=== PATIENT | male | born 2000 | race Caucasian/White ===

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

== ENCOUNTER 2023-12-18 12:12 | Emergency (ER) | payer OTHER ==
[~2023-12-18] VITALS: Ht 165.1 cm; Wt 53.6 kg
[2023-12-18] MEDS: diphenhydrAMINE 50MG/ML VIAL IV STA (12:44)
[2023-12-18] MEDS ORDERED: MIRT1TAB (12:49)
[2023-12-18] MEDS: BOOSTRIX VACCINE (TETANUS/DIPHTH/ACEL. PERTUSSIS) 0.5ML SYR IM.IMMUN ONE (13:15)
[2023-12-18 13:33] VITALS: BP 129/84; TEMP 98.4; O2SAT 100
== END 2023-12-18 13:39 | disposition home or self-care (01) ==
LOC: M ED 12:12
DX: G24.02 Drug induced acute dystonia (principal); F32.A Depression, unspecified; Z79.899 Other long term (current) drug therapy; Z23 Encounter for immunization
CPT/HCPCS: 90471; 90715; 96374; 99283; J1200

== ENCOUNTER 2023-12-27 08:20 | Emergency (ER) | payer OTHER ==
[~2023-12-27 08:20] MED LIST: MIRT1TAB
== END 2023-12-27 11:04 | disposition left against medical advice (07) ==
LOC: M ED 08:20
DX: Z53.21 Procedure and treatment not carried out due to patient leaving prior to being seen by health care provider (principal)

== ENCOUNTER 2023-12-29 08:59 | Emergency (ER) | payer OTHER ==
[~2023-12-29] VITALS: Ht 165.1 cm; Wt 52.9 kg
[2023-12-29 11:00] LABS: BASO # 0.1 10^3/uL (0.0-0.2); BASO % 0.5 % (0.0-1.0); EOS % 0.1 % (0.0-3.0); HEMATOCRIT 44.8 % (42.0-52.0); HEMOGLOBIN 15.7 g/dl (13.5-17.5); LYMPH # 0.8 10^3/uL (1.5-5.0); LYMPH % 6.5 % (24.0-44.0); MEAN CORPUSCULAR HEMOGLOBIN 30.7 pg (27.0-33.0); MEAN CORPUSCULAR VOLUME 87.5 fl (80.0-96.0); MONO # 0.5 10^3/uL (0.0-0.8); MONO % 3.8 % (2.0-8.0); NEUTROPHILS # 10.6 10^3/uL (1.5-8.5); NEUTROPHILS % 88.8 % (36.0-66.0); PLATELET COUNT, AUTOMATED 168 10^3/uL (150-450); RED BLOOD COUNT 5.12 10^6/uL (4.30-6.10)
[2023-12-29 11:20] VITALS: BP 110/64; TEMP 98.3; O2SAT 100
[2023-12-29 11:33] LABS: ALBUMIN 4.7 G/DL (3.2-5.2); ALKALINE PHOSPHATASE 65 U/L (46-116); ALT/SGPT 19 U/L (7.0-40); AST/SGOT < 8 U/L (<34); BILIRUBIN,TOTAL 0.8 MG/DL (0.3-1.2); BLOOD UREA NITROGEN 10 MG/DL (9-23); CALCIUM LEVEL 9.8 MG/DL (8.5-10.1); CARBON DIOXIDE LEVEL 26 MMOL/L (20-31); CHLORIDE LEVEL 108 MMOL/L (98-107); CREATININE FOR GFR 0.81 MG/DL (0.70-1.30); GLOMERULAR FILTRATION RATE > 60.0 (>60); GLUCOSE, FASTING 107 MG/DL (60-100); POTASSIUM SERUM 3.4 MMOL/L (3.5-5.1); SODIUM LEVEL 143 MMOL/L (136-145); TOTAL PROTEIN 6.9 G/DL (5.7-8.2)
[2023-12-29] MEDS: ONDANSETRON 4MG 2ML VIAL IV ONE (11:56)
[2023-12-29] MEDS: METOCLOPRAMIDE INJ 10MG/2ML VIAL IV ONE (11:57)
[2023-12-29] MEDS: NS 1,000 ML IV ONE (11:58)
== END 2023-12-29 12:22 | disposition left against medical advice (07) ==
LOC: M ED 08:59
DX: R11.2 Nausea with vomiting, unspecified (principal); R19.7 Diarrhea, unspecified; R10.9 Unspecified abdominal pain; F17.200 Nicotine dependence, unspecified, uncomplicated; F41.9 Anxiety disorder, unspecified; F32.A Depression, unspecified; Z88.8 Allergy status to other drugs, medicaments and biological substances; Z79.899 Other long term (current) drug therapy; Z53.9 Procedure and treatment not carried out, unspecified reason
CPT/HCPCS: 80053; 81001; 85025; 87486; 87581; 87633; 87798; 96361; 96374; 96375; 99283; J2405; J2765

== ENCOUNTER 2024-01-03 08:13 | Emergency (ER) | payer OTHER | END 2024-01-03 08:30 | disposition left against medical advice (07) | LOC: M ED 08:13 | DX: Z53.21 Procedure and treatment not carried out due to patient leaving prior to being seen by health care provider (principal) ==

== ENCOUNTER 2024-07-26 18:58 | Emergency (ER) | payer MEDICAID, OTHER, SELFPAY ==
[~2024-07-26] VITALS: Ht 165.1 cm; Wt 54.5 kg
[2024-07-26] MEDS ORDERED: ONDA-282 PO ×2 (20:57→22:09)
[2024-07-26 21:30] VITALS: BP 127/68; TEMP 99; O2SAT 97
[2024-07-26] MEDS ORDERED: OSEL75CA PO (22:09)
[2024-07-26] MEDS: OSELTAMIVIR PHOSPHATE 75 MG CAP PO ONE (22:15)
[2024-07-26] MEDS: ONDANSETRON 4MG ORAL DISINTEGRATING TAB PO ONE (22:15)
== END 2024-07-26 22:23 | disposition home or self-care (01) ==
LOC: M ED 18:58
DX: J09.X2 Influenza due to identified novel influenza A virus with other respiratory manifestations (principal); Z79.83 Long term (current) use of bisphosphonates; Z79.899 Other long term (current) drug therapy

== ENCOUNTER 2024-08-01 10:13 | Emergency (ER) | payer SELFPAY ==
[~2024-08-01 10:13] MED LIST changes: +ONDA-282 PO; +OSEL75CA PO
[2024-08-01 10:18] VITALS: BP 136/85
== END 2024-08-01 10:30 | disposition left against medical advice (07) ==
LOC: M ED 10:13
DX: Z53.21 Procedure and treatment not carried out due to patient leaving prior to being seen by health care provider (principal)

== ENCOUNTER 2024-08-01 10:48 | Emergency (ER) | payer SELFPAY ==
[~2024-08-01] VITALS: Ht 165.1 cm; Wt 54.8 kg
[2024-08-01] MEDS: FAMOTIDINE 20 MG TAB PO ONE (13:23)
[2024-08-01] MEDS: PANTOPRAZOLE 40MG VIAL IV ONE (14:03)
[2024-08-01] MEDS: ONDANSETRON 4MG 2ML VIAL IV ONE (14:03)
[2024-08-01] MEDS: NS (Normal Saline) 0.9% 1,000 ML IV ONE (14:03)
[2024-08-01 14:30] LABS: BASO # 0.1 10^3/uL (0.0-0.2); BASO % 0.4 % (0.0-1.0); EOS % 0.1 % (0.0-3.0); HEMOGLOBIN 17.8 g/dl (13.5-17.5); LYMPH # 0.9 10^3/uL (1.5-5.0); MEAN CORPUSCULAR HEMOGLOBIN 30.5 pg (27.0-33.0); MEAN CORPUSCULAR HGB CONC 36.3 g/dl (32.0-36.5); MEAN CORPUSCULAR VOLUME 83.9 fl (80.0-96.0); MONO # 0.6 10^3/uL (0.0-0.8); MONO % 3.3 % (2.0-8.0); NEUTROPHILS # 15.4 10^3/uL (1.5-8.5); NEUTROPHILS % 90.8 % (36.0-66.0); PLATELET COUNT, AUTOMATED 248 10^3/uL (150-450); RED BLOOD COUNT 5.84 10^6/uL (4.30-6.10); WHITE BLOOD COUNT 16.9 10^3/uL (4.0-10.0)
[2024-08-01 14:59] LABS: BLOOD UREA NITROGEN 9 MG/DL (9-23); CALCIUM LEVEL 10.5 MG/DL (8.5-10.1); CARBON DIOXIDE LEVEL 22 MMOL/L (20-31); CHLORIDE LEVEL 105 MMOL/L (98-107); CREATININE FOR GFR 0.71 MG/DL (0.70-1.30); GLOMERULAR FILTRATION RATE > 60.0 (>60); GLUCOSE, FASTING 114 MG/DL (60-100); POTASSIUM SERUM 4.2 MMOL/L (3.5-5.1); SODIUM LEVEL 141 MMOL/L (136-145)
[2024-08-01 15:55] LABS: AMPHETAMINES LEVEL URINE NEGATIVE (NEGATIVE); BARBITURATES URINE NEGATIVE (NEGATIVE); BENZODIAZEPINES URINE NEGATIVE (NEGATIVE); COCAINE METABOLITE URINE NEGATIVE (NEGATIVE); METHADONE URINE NEGATIVE (NEGATIVE); OPIATES URINE NEGATIVE (NEGATIVE); PHENCYCLIDINE URINE NEGATIVE (NEGATIVE)
[2024-08-01 15:58] LABS: CANNABINOIDS URINE POSITIVE (NEGATIVE)
[2024-08-01 16:19] VITALS: BP 118/51; TEMP 98.3; O2SAT 100
== END 2024-08-01 16:22 | disposition home or self-care (01) ==
LOC: M ED 10:48
DX: R11.15 Cyclical vomiting syndrome unrelated to migraine (principal); F41.9 Anxiety disorder, unspecified; R25.1 Tremor, unspecified; Z88.8 Allergy status to other drugs, medicaments and biological substances
CPT/HCPCS: 80048; 80307; 85025; 87486; 87581; 87633; 87798; 96361; 96374; 96375; 99284; J2405; J2470